=== PATIENT | female | born 1990 | race Caucasian/White ===

== ENCOUNTER 2018-12-24 23:48 | Emergency (ER) | payer BC, SELFPAY ==
--- OUTSIDE RECORDS SUMMARY | 2018-12-24 23:50 | XMS REPORT | Clinical Summary ---
:1990 Author Organization [facility] Address [address] [place] [id number] Care Team Providers Name Role Phone Asked, No Pcp Primary Care Provider Unavailable Allergies Active Allergy Reactions Severity Noted Date Comments Azithromycin 12/21/2016 Cefaclor 12/21/2016 Promethazine 06/28/2017 Shrimp 06/28/2017 Medications Medication Sig Dispensed Refills Start Date End Date Status acetaZOLAMIDE (DIAMOX) Take 500 mg by 0 Active 500 mg capsule mouth 2 (two) times a day. ETONOGESTREL/ETHINYL Insert into the 0 Active ESTRADIOL (NUVARING vagina. VAGL) acetaminophen (TYLENOL) Take 500 mg by 0 Active 500 MG tablet mouth every 6 (six) hours as needed for mild pain. verapamil (CALAN) 40 MG Take 1 tablet 60 tablet 2 06/28/2017 Active tablet (40 mg total) by mouth 2 (two) times a day. Active Problems No known active problems Encounters Date Type Specialty Care Team Description 09/04/2018 Telephone Ophthalmology Olivia Coyle MD after 12/23/2017 Family History Medical History Relation Name Comments Hypertension Father Arthritis Mother Hypertension Mother Hypertension Sister Cancer Neg Hx Relation Name Status Comments Father Mother Sister Social History Tobacco Use Types Packs/Day Years Used Date Former Smoker Smokeless Tobacco: Never Used Alcohol Use Drinks/Week oz/Week Comments Yes Sex Assigned at Date Recorded Not on file Job Start Date Occupation Industry Not on file Not on file Not on file Travel History Travel Start Travel End No recent travel history available. Last Filed Vital Signs Not on file Plan of Treatment Health Maintenance Due Date Last Done Comments INFLUENZA VACCINE 01/04/2019 Results Not on fileafter 12/23/2017 Advance Directives Patient has advance care planning documents on file. For more information, please contact:[place] [address]
[2018-12-25 00:40] LABS: Basophils % 0.4 % (0-1.3); Eosinophils % 1.4 % (0-4.4); Lymphocytes % 18.5 % (15.3-44.8); MPV 8.4 fL (7.6-11.3); Monocytes % 6.1 % (3.3-12.3); RBC Red Blood Cell Count 4.88 M/uL (3.86-4.86)
[2018-12-25 00:41] LABS: Urine Blood NEGATIVE (NEG); Urine Glucose NEGATIVE (NEG); Urine Protein NEGATIVE (NEG); Urine Specific Gravity 1.015 (1.005-1.030)
[2018-12-25 00:49] LABS: BUN Blood Urea Nitrogen 6 mg/dL (7-18); Bicarbonate 27 mmol/L (21-32); Glucose Level 104 mg/dL (74-106); Potassium 3.7 mmol/L (3.5-5.1); Sodium Level 138 mmol/L (136-145)
[2018-12-25] MEDS ORDERED: METOCLOPRAMIDE 10 MG/2mL INJ ONE (00:50)
[2018-12-25] MEDS ORDERED: DIPHENHYDRAMINE 50 MG/ML VIAL ONE (00:50)
[2018-12-25] MEDS ORDERED: dexAMETHasone 10 MG/ML VIAL ONE (00:50)
--- NOTE | 2018-12-25 03:14 | ER ---
Nurse's Notes [facility] Name: Fabiola Huston Age: 28 yrs Sex: Female : 1990 Arrival Date: 12/24/2018 Time: 23:52 Bed 5 Private MD: Diagnosis: Headache Presentation: 12/25 00:00 Presenting complaint: Patient states: headache X1 hour STEAM BOX HAND with vomiting X2. pt stated ak1 last headache was 1 year STEAM BOX HAND. pt sees Neurologist at [facility]. pt with hx of pseudo tumor. Transition of care: patient was not received from another setting of care. Onset of symptoms was December 25, 2018. Risk Assessment: Do you want to hurt yourself or someone else? Patient reports no desire to harm self or others. Initial Sepsis Screen: Does the patient meet any 2 criteria? No. Patient's initial sepsis screen is negative. Does the patient have a suspected source of infection? No. Patient's initial sepsis screen is negative. Care prior to arrival: None. 00:00 Acuity: VAHID 3 ak1 00:00 Method Of Arrival: Ambulatory ak1 Triage Assessment: 00:02 Headache History: The patient has had previous headaches and this one is similar to ak1 previous episodes. General: Appears uncomfortable, Behavior is calm, cooperative. Pain: Pain currently is 9 out of 10 on a pain scale. Pain began 1 hour ago. Also complains of nausea, photophobia. EENT: No signs and/or symptoms were reported regarding the EENT system. Neuro: Level of Consciousness is awake, alert, obeys commands, Oriented to person, place, time, Development Lead are equal bilaterally Moves all extremities. Gait is steady, Speech is normal, Facial symmetry appears normal. Cardiovascular: No deficits noted. Respiratory: No deficits noted. GI: No signs and/or symptoms were reported involving the gastrointestinal system. : No signs and/or symptoms were reported regarding the genitourinary system. Derm: No signs and/or symptoms reported regarding the dermatologic system. Musculoskeletal: No signs and/or symptoms reported regarding the musculoskeletal system. 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 - Social history:: Smoking status: Patient uses tobacco products, smokes one pack cigarettes per day. pt quit smoking 3 weeks STEAM BOX HAND. - Ebola Screening: : No symptoms or risks identified at this time. Screenin:03 Abuse screen: Denies threats or abuse. Denies injuries from another. Nutritional ak1 screening: No deficits noted. Tuberculosis screening: No symptoms or risk factors identified. Fall Risk None identified. Assessment: 00:04 Reassessment: Patient appears in no apparent distress at this time. No changes from ak1 previously documented assessment. see triage assessment. 00:29 General: Appears uncomfortable. ak1 Vital Signs: 12/24 23:59 BP 146 / 105; Pulse 77; Resp 16; Temp 97(TE); Pulse Ox 100% on R/A; Weight 95.25 kg ak1 (R); Height 5 ft. 6 in. (167.64 cm) (R); Pain 9/10; 12/25 00:10 BP 139 / 99; Pulse 67; Resp 16; Pulse Ox 99% on R/A; ak1 01:15 BP 140 / 96; Pulse 69; Resp 16; Temp 97.4; Pulse Ox 99% on R/A; ak1 02:26 Pain 4/10; ak1 02:33 BP 130 / 89; Pulse 74; Resp 16; Pulse Ox 99% on R/A; Pain 4/10; ak1 03:17 BP 131 / 89; Pulse 69; Resp 16; Temp 98; Pulse Ox 99% on R/A; Pain 4/10; ak1 12/24 23:59 Body Mass Index 33.89 (95.25 kg, 167.64 cm) ak1 ED Course: 12/24 23:52 Patient arrived in ED. ag3 23:54 Sona Staples, SUSIE is Primary Nurse. ak1 23:56 Mu Abdullahi NP is PHCP. pm1 23:56 Arturo Cano MD is Attending Physician. pm1 23:59 Arm band placed on Patient placed in an exam room, on a stretcher, on pulse oximetry, ak1 Patient notified of wait time. 12/25 00:01 Triage completed. ak1 00:03 Patient has correct armband on for positive identification. Bed in low position. Call ak1 light in reach. Side rails up X 1. Pulse ox on. NIBP on. 00:29 Initial lab(s) drawn, by me, sent to lab. Urine collected: clean catch specimen, clear. ak1 Inserted saline lock: 22 gauge in left antecubital area, using aseptic technique. Blood collected. 02:17 CT Head Brain wo Cont In Process Unspecified. EDMS 03:13 Armin Salinas MD is Referral Physician. pm1 03:18 No provider procedures requiring assistance completed. IV discontinued, intact, ak1 bleeding controlled, No redness/swelling at site. Pressure dressing applied. Administered Medications: 00:42 Drug: Decadron - Dexamethasone 10 mg Route: IVP; Site: left antecubital; ak1 02:34 Follow up: Response: No adverse reaction; Pain is decreased ak1 00:42 Drug: Benadryl 25 mg Route: IVP; Site: left antecubital; ak1 02:34 Follow up: Response: No adverse reaction; Pain is decreased ak1 00:42 Drug: Reglan 10 mg Route: IVP; Site: left antecubital; ak1 02:34 Follow up: Response: No adverse reaction; Pain is decreased ak1 Outcome: 03:13 Discharge ordered by MD. pm1 03:19 Discharged to home ambulatory, with family. ak1 03:19 Condition: improved 03:19 Discharge instructions given to patient, Instructed on discharge instructions, follow up and referral plans. no drinking with medication, no driving heavy equipment, medication usage, Demonstrated understanding of instructions, follow-up care, medications, Prescriptions given X 1. 03:24 Patient left the ED. ak1 Signatures: Dispatcher [employer] EDRI Sona Staples RN RN ak1 Mu Abdullahi, CLINICAL LAB ASSISTANT CLINICAL LAB ASSISTANT pm1 Michelle Gamble ag3
--- NOTE | 2018-12-25 03:14 | EDPHYS ---
Physician Documentation [facility] Name: Fabiola Huston Age: 28 yrs Sex: Female : 1990 Arrival Date: 12/24/2018 Time: 23:52 Bed 5 Private MD: ED Physician Arturo Cano HPI: 12/25 00:25 This 28 yrs old Female presents to ER via Ambulatory with complaints of pm1 Headache. 00:25 The patient complains of pain to the forehead. The patient describes the headache as pm1 aching, constant. Onset: The symptoms/episode began/occurred 1 hour prior to arrival. Associated signs and symptoms: Pertinent positives: vomiting x 2, Pertinent negatives: dizziness, fever, vision changes. Severity of symptoms: in the emergency department the pain is unchanged. Headache History: The patient has had previous headaches and this one is similar to previous episodes. The symptoms are alleviated by Darkened room, the symptoms are aggravated by lights. The patient has experienced similar episodes in the past, a few times. The patient has not recently seen a physician, has an appointment scheduled, neurology in February. 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 - Social history:: Smoking status: Patient uses tobacco products, smokes one pack cigarettes per day. 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 - Ebola Screening: : No symptoms or risks identified at this time. ROS: 00:25 Constitutional: Negative for fever, chills, and weight loss, Eyes: Negative for injury, pm1 pain, redness, and discharge, ENT: Negative for injury, pain, and discharge, Neck: Negative for injury, pain, and swelling, Cardiovascular: Negative for chest pain, palpitations, and edema, Respiratory: Negative for shortness of breath, cough, wheezing, and pleuritic chest pain, Abdomen/GI: Negative for abdominal pain, nausea, vomiting, diarrhea, and constipation, Back: Negative for injury and pain, MS/Extremity: Negative for injury and deformity, Skin: Negative for injury, rash, and discoloration. 00:25 Neuro: Positive for headache, Negative for numbness, tingling, weakness. Exam: 00:25 Constitutional: This is a well developed, well nourished patient who is awake, alert, pm1 and in no acute distress. Head/Face: Normocephalic, atraumatic. 00:25 Neck: Trachea midline, no thyromegaly or masses palpated, and no cervical lymphadenopathy. Supple, full range of motion without nuchal rigidity, or vertebral point tenderness. No Meningismus. Chest/axilla: Normal chest wall appearance and motion. Nontender with no deformity. No lesions are appreciated. Cardiovascular: Regular rate and rhythm with a normal S1 and S2. No gallops, murmurs, or rubs. Normal PMI, no JVD. No pulse deficits. Respiratory: Lungs have equal breath sounds bilaterally, clear to auscultation and percussion. No rales, rhonchi or wheezes noted. No increased work of breathing, no retractions or nasal flaring. Abdomen/GI: Soft, non-tender, with normal bowel sounds. No distension or tympany. No guarding or rebound. No evidence of tenderness throughout. Back: No spinal tenderness. No costovertebral tenderness. Full range of motion. Skin: Warm, dry with normal turgor. Normal color with no rashes, no lesions, and no evidence of cellulitis. MS/ Extremity: Pulses equal, no cyanosis. Neurovascular intact. Full, normal range of motion. 00:25 Eyes: Periorbital structures: appear normal, Pupils: no acute changes, Extraocular movements: no acute changes, Conjunctiva: normal, Corneas: are normal, Sclera: no appreciated abnormality, funduscopic exam reveals no acute changes, no appreciated papilledema. 00:25 Neuro: Orientation: is normal, Cranial nerves: CN II- XII are normal as tested, Motor: is normal, moves all fours, Sensation: is normal, no obvious gross deficits. Vital Signs: 12/24 23:59 BP 146 / 105; Pulse 77; Resp 16; Temp 97(TE); Pulse Ox 100% on R/A; Weight 95.25 kg ak1 (R); Height 5 ft. 6 in. (167.64 cm) (R); Pain 9/10; 12/25 00:10 BP 139 / 99; Pulse 67; Resp 16; Pulse Ox 99% on R/A; ak1 01:15 BP 140 / 96; Pulse 69; Resp 16; Temp 97.4; Pulse Ox 99% on R/A; ak1 02:26 Pain 4/10; ak1 02:33 BP 130 / 89; Pulse 74; Resp 16; Pulse Ox 99% on R/A; Pain 4/10; ak1 03:17 BP 131 / 89; Pulse 69; Resp 16; Temp 98; Pulse Ox 99% on R/A; Pain 4/10; ak1 12/24 23:59 Body Mass Index 33.89 (95.25 kg, 167.64 cm) ak1 MDM: 00:03 Patient medically screened. pm1 02:10 Data reviewed: vital signs. Data interpreted: Pulse oximetry: on room air is 99 %. pm1 Interpretation: normal. 03:12 Counseling: I had a detailed discussion with the patient and/or guardian regarding: the pm1 historical points, exam findings, and any diagnostic results supporting the discharge/admit diagnosis, lab results, radiology results, the need for outpatient follow up, a neurologist, to return to the emergency department if symptoms worsen or persist or if there are any questions or concerns that arise at home. 03:15 ED course: Patient feeling significantly better with medications given in the ER and pm1 feels ready to go home. No papiledema noted by Dr. Cano and patient's symptoms improved with medications therefore no LP required. Therefore will discharge the patient home for follow up with neurology. 12/25 00:07 Order name: BMP; Complete Time: 00:50 pm1 12/25 00:07 Order name: CBC with Diff; Complete Time: 01:23 pm1 12/25 00:06 Order name: CT Head Brain wo Cont pm1 12/25 00:28 Order name: Urine Dipstick--Ancillary (enter results); Complete Time: 00:50 cm6 12/25 00:28 Order name: Urine --Ancillary (enter results); Complete Time: 00:50 cm6 12/25 00:07 Order name: IV Saline Lock; Complete Time: 00:29 pm1 12/25 00:07 Order name: Urine Dipstick-Ancillary (obtain specimen); Complete Time: 00:28 pm1 12/25 00:07 Order name: Urine Test (obtain specimen); Complete Time: 00: pm1 Administered Medications: 00:42 Drug: Decadron - Dexamethasone 10 mg Route: IVP; Site: left antecubital; ak1 02:34 Follow up: Response: No adverse reaction; Pain is decreased ak1 00:42 Drug: Benadryl 25 mg Route: IVP; Site: left antecubital; ak1 02:34 Follow up: Response: No adverse reaction; Pain is decreased ak1 00:42 Drug: Reglan 10 mg Route: IVP; Site: left antecubital; ak1 02:34 Follow up: Response: No adverse reaction; Pain is decreased ak1 Disposition: 12/25/18 03:13 Discharged to Home. Impression: Headache. - Condition is Stable. - Discharge Instructions: General Headache Without Cause. - Prescriptions for Fiorinal 50- 325-40 mg Oral Capsule - take 1 capsule by ORAL route every 4 hours As needed - not to exceed 6 capsules per day; 20 capsule. - Medication Reconciliation Form, Thank You Letter, Antibiotic Education, Prescription Opioid Use form. - Follow up: Emergency Department; When: As needed; Reason: Worsening of condition. Follow up: Armin Salinas MD; When: 2 - 3 days; Reason: Recheck today's complaints, Continuance of care, Re-evaluation by your physician. - Problem is new. - Symptoms have improved. Addendum: 12/26/2018 04:31 Co-signature as Attending Physician, Arturo Cano MD I agree with the assessment and t w4 plan of care. Signatures: Dispatcher [employer] EDSona Leon RN RN ak1 Mu Abdullahi, SOIL SURVEYOR SOIL SURVEYOR pm1 Arturo Cano MD MD tw4 Corrections: (The following items were deleted from the chart) 12/25 03:12 00:25 Counseling: I had a detailed discussion with the patient and/or guardian pm1 regarding: the historical points, exam findings, and any diagnostic results supporting the discharge/admit diagnosis, lab results, radiology results, the need for outpatient follow up, a neurologist, to return to the emergency department if symptoms worsen or persist or if there are any questions or concerns that arise at home, pm1 03:24 03:13 12/25/2018 03:13 Discharged to Home. Impression: Headache. Condition is Stable. ak1 Forms are Medication Reconciliation Form, Thank You Letter, Antibiotic Education, Prescription Opioid Use. Follow up: Emergency Department; When: As needed; Reason: Worsening of condition. Follow up: Armin Salinas; When: 2 - 3 days; Reason: Recheck today's complaints, Continuance of care, Re-evaluation by your physician. Problem is new. Symptoms have improved. pm1
[2018-12-25 03:58] VITALS: O2SAT 99
[2018-12-25 04:04] VITALS: BP 131/89; TEMP 98
--- NOTE | 2018-12-25 10:32 | RAD REPORT ---
EXAM DESCRIPTION: CT - Head Brain Wo Cont - 12/25/2018 4:47 am CLINICAL HISTORY: The patient is 28 years old and is Female; HEADACHE TECHNIQUE: Axial computed tomography images of the head/brain without intravenous contrast. Sagitt al and coronal reformatted images were created and reviewed. This CT exam was performed using one o r more of the following dose reduction techniques: automated exposure control, adjustment of the mA and/or kV according to patient size, and/or use of iterative reconstruction technique. COMPARISON: CT head January 06, 2017. FINDINGS: BRAIN: Unremarkable. The hooker-white matter differentiation is preserved . No hemorrhag e. No significant white matter disease. No edema. No extra-axial fluid collections. VENTRICLES: Unremarkable. No ventriculomegaly. BONES/JOINTS: No acute fracture. SOFT TISSUES: Unremarkable. SINUSES: Unremarkable as visualized. No acute sinusitis. MASTOID AIR CELLS: Unremarkable as visualized. No mastoid effusion. IMPRESSION: No acute intracranial findings. Electronically signed by: Ngoc Gordon MD 12/25/2018 2:57 AM CDT Due to temporary technical issues with the PACS/Fluency reporting system, reports are being signed by the in house radiologist as a courtesy to ensure prompt reporting. The interpreting radiologist is f ully responsible for the content of the report.
== END 2018-12-25 03:24 | disposition home or self-care (01) ==
LOC: ER 23:48
DX: R51 Headache (principal); Z88.1 Allergy status to other antibiotic agents; Z88.8 Allergy status to other drugs, medicaments and biological substances; J45.909 Unspecified asthma, uncomplicated; I10 Essential (primary) hypertension; E28.2 Polycystic ovarian syndrome
CPT/HCPCS: 36415; 70450; 80048; 81003; 81025; 85025; 96374; 96375; 99284; J1100; J2765